=== PATIENT | male | born 1960 | race Caucasian/White ===

== ENCOUNTER 2018-02-20 05:38 | Emergency (ER) | payer BC, OTHER ==
[~2018-02-20] VITALS: Ht 188 cm; Wt 116.9 kg
[~2018-02-20 05:38] MED LIST: ATOR10TA; DIAZ5TAB PO; DULO60CA7; ESOM40CA; LISI1TAB5; OLAN5TAB3 PO; TEST75GE; TRAZ100T15 PO
[2018-02-20 05:41] VITALS: BP 139/81
[2018-02-20] MEDS ORDERED: TRIAMCINOLONE (05:54)
== END 2018-02-20 06:41 | disposition home or self-care (01) ==
LOC: ED 06:15
DX: L23.89 Allergic contact dermatitis due to other agents (principal); L27.0 Generalized skin eruption due to drugs and medicaments taken internally; T50.995A Adverse effect of other drugs, medicaments and biological substances, initial encounter; B37.9 Candidiasis, unspecified; I10 Essential (primary) hypertension; E78.00 Pure hypercholesterolemia, unspecified; M54.9 Dorsalgia, unspecified; G89.29 Other chronic pain; F31.9 Bipolar disorder, unspecified; K21.9 Gastro-esophageal reflux disease without esophagitis; Z90.49 Acquired absence of other specified parts of digestive tract; Z87.891 Personal history of nicotine dependence; Z79.899 Other long term (current) drug therapy; Y92.89 Other specified places as the place of occurrence of the external cause
CPT/HCPCS: 99283

== ENCOUNTER 2019-05-09 02:46 | Emergency (ER) | payer BC ==
[~2019-05-09] VITALS: Ht 182.9 cm; Wt 108.0 kg
[~2019-05-09 02:46] MED LIST changes: +TRAZ-137 PO; -TRAZ100T15 PO; +TRIAMCINOLONE
[2019-05-09 02:48] VITALS: BP 101/58
[2019-05-09] MEDS ORDERED: BUPIVACAINE 0.25% INFIL ONE (03:30)
[2019-05-09] MEDS ORDERED: LIDOCAINE-MPF 1%, 5ML INFIL ONE (03:30)
[2019-05-09] MEDS ORDERED: LIDOCAINE-MPF 1%, 5ML ONE (03:37)
[2019-05-09] MEDS ORDERED: BUPIVACAINE 0.25% ONE (03:37)
== END 2019-05-09 05:02 ==
LOC: ED 03:50
DX: K08.89 Other specified disorders of teeth and supporting structures (principal); K21.9 Gastro-esophageal reflux disease without esophagitis; G89.29 Other chronic pain; E78.00 Pure hypercholesterolemia, unspecified; I10 Essential (primary) hypertension; Z87.891 Personal history of nicotine dependence
CPT/HCPCS: 64402; 99284

== ENCOUNTER 2019-05-15 17:44 | Emergency (ER) | payer BC ==
[~2019-05-15] VITALS: Ht 185.4 cm; Wt 103.0 kg
--- NOTE | 2019-05-15 18:40 | NUR ---
PT STATES HE CAME DOWN FULL WEIGHT ON PIECE OF METAL THAT IS PART OF DOG BOWL JON. METAL HAD BEEN IMPALED INTO HIS LEFT FOOT. PT MANAGED TO REMOVE IT. PUNCURE WOUND, NO BLEEDING NOTED BOTTOM OF LEFT FOOT
--- NOTE | 2019-05-15 18:51 | NUR ---
REPORT RECEIVED FROM DARRION ALAS.
[2019-05-15] MEDS ORDERED: ACETAMINOPHEN 500 MG TABLET ONE (18:55)
[2019-05-15] MEDS ORDERED: IBUPROFEN 600 MG TABLET ONE (18:55)
--- NOTE | 2019-05-15 18:59 | NUR ---
PT MEDICATED PER EMAR FOR PAIN. PT TOLERATED WELL.
[2019-05-15] MEDS ORDERED: ACETAMINOPHEN 500 MG TABLET PO ONE (19:00)
[2019-05-15] MEDS ORDERED: IBUPROFEN 600 MG TABLET PO ONE (19:00)
[2019-05-15 19:24] VITALS: BP 84/48
--- NOTE | 2019-05-15 19:24 | NUR ---
BP 84/48 PER MANUAL BP. EDMD NOTIFIED. PT DENIES DZY.
[2019-05-15 19:35] LABS: BASOPHILS # (AUTO) 0.05 x10^3/uL (0-0.1); BASOPHILS % (AUTO) 0 % (0-1); EOSINOPHILS # (AUTO) 0.09 x10^3/uL (0-0.4); EOSINOPHILS % (AUTO) 1 % (1-7); LYMPHOCYTES # (AUTO) 3.05 x10^3/uL (1-3.4); LYMPHOCYTES % (AUTO) 21 % (22-44); MD NO; MEAN CORPUSCULAR HEMOGLOBIN 26.6 pg (27.5-34.5); MEAN CORPUSCULAR HGB CONC 32.4 g/dL (33.2-36.2); MEAN PLATELET VOLUME 7.3 fL (7.4-10.4); MONOCYTES # (AUTO) 1.07 x10^3/uL (0.2-0.8); MONOCYTES % (AUTO) 7 % (2-9); NEUTROPHILS # (AUTO) 10.57 x10^3/uL (1.8-6.8); NEUTROPHILS % (AUTO) 71 % (42-75); PLATELET COUNT 334 x10^3/uL (130-400); RED BLOOD COUNT 5.32 x10^6/uL (4.38-5.82); RED CELL DISTRIBUTION WIDTH 18.9 % (9.4-14.8)
[2019-05-15 19:43] LABS: ANION GAP 8 mmol/L (5-15); CALCIUM 8.4 mg/dL (8.5-10.1); CHLORIDE 104 mmol/L (98-107); CREATININE 2.02 mg/dL (0.7-1.3)
[2019-05-15] MEDS ORDERED: DIPH,PERTUSS(ACELL),TET VAC/PF 0.5 ML IM-VACC ONE ×2 (19:59→20:00)
[2019-05-15] MEDS ORDERED: AMOXICILLIN/CLAV 875-125MG TABLET ONE (19:59)
[2019-05-15] MEDS ORDERED: AMOXICILLIN/CLAV 875-125MG TABLET PO ONE (20:00)
--- NOTE | 2019-05-15 20:10 | NUR ---
PT MEDICATED PER EMAR. PT TOLERATED WELL.
--- NOTE | 2019-05-15 20:22 | NUR ---
PT GIVEN DC INSTRUCTIONS AND SCRIPT. PT EDUCATED REGARDING DC MEDICATION. PT'S AOX4. RESPS EVEN AND UNLABORED. NO ACUTE DISTRESS AT DC.
== END 2019-05-15 20:23 | disposition home or self-care (01) ==
LOC: ED 18:36
DX: S91.332A Puncture wound without foreign body, left foot, initial encounter (principal); K21.9 Gastro-esophageal reflux disease without esophagitis; E78.00 Pure hypercholesterolemia, unspecified; I10 Essential (primary) hypertension; I95.2 Hypotension due to drugs; W19.XXXA Unspecified fall, initial encounter; Y93.89 Activity, other specified; Y92.009 Unspecified place in unspecified non-institutional (private) residence as the place of occurrence of the external cause; Y99.8 Other external cause status
CPT/HCPCS: 36415; 80048; 85025; 90471; 90715

== ENCOUNTER 2019-05-16 10:00 | Emergency (ER) | payer BC ==
[~2019-05-16] VITALS: Ht 182.9 cm; Wt 110.0 kg
[2019-05-16 10:01] VITALS: BP 109/66
--- NOTE | 2019-05-16 10:26 | NUR ---
to tr01 via wheelchair. tech assisting to don gown
--- NOTE | 2019-05-16 10:28 | NUR ---
PA at BS
[2019-05-16] MEDS ORDERED: HYDROcodone/APAP 5/325 TABLET ONE (10:53)
[2019-05-16] MEDS ORDERED: HYDROcodone/APAP 5/325 TABLET PO ONE (11:00)
[2019-05-16] MEDS ORDERED: BACITRACIN OINT 500U/GM, 15 GM TP ONE (11:30)
[2019-05-16] MEDS ORDERED: NEOSPORIN OINT. PKT 1 PACKET TP ONE (11:30)
--- NOTE | 2019-05-16 11:36 | NUR ---
ice pack given to patient
== END 2019-05-16 11:48 | disposition home or self-care (01) ==
LOC: ED 11:20
DX: S91.332A Puncture wound without foreign body, left foot, initial encounter (principal); I10 Essential (primary) hypertension; K21.9 Gastro-esophageal reflux disease without esophagitis; E78.00 Pure hypercholesterolemia, unspecified; X58.XXXA Exposure to other specified factors, initial encounter; Y93.89 Activity, other specified; Y92.89 Other specified places as the place of occurrence of the external cause; Y99.8 Other external cause status
CPT/HCPCS: 99283

== ENCOUNTER 2019-05-25 04:48 | Emergency (ER) | payer BC ==
[~2019-05-25] VITALS: Ht 182.9 cm; Wt 108.0 kg
--- NOTE | 2019-05-25 05:10 | NUR ---
Pt sitting on david and begins stating, "I need pain medications. I am in pain all over, I fell 12 hours ago in [employer], they thought I was drunk, I was not drunk, someone even said, "he is drunk", I hit my head, I have a lump on my head and I hit my glasses, I have bruising on my arms and I hurt my knees, this knee (my right knee) I had surgery on. I was here last week and you all saw me for a hook in my foot, I passed out then too, and you all took an x-ray of my foot and sent me home with out pain meds, then I came back and got 6 pain pills. I am not a pain med jordan, I don't drink. I am a massage therapist, I am concerned that I have soft tissue damange in my foot where the hook was. I want an MRI. I want my knees scanned. I want pain medications. I take propanolol and lisinopril. I was 284 lbs, and I am on a diet of shakes and not really eating, and I am now 234 lbs. I need to see my doctor Isabela Rashid and have my blood pressure meds lowered." Pt denies cp, sob, vomitting, diarrhea. CMS intact Pt connected to NIBP cuff and continous pulse ox. Both bed rails up x2, call light within reach. No other needs expressed at this time.
--- NOTE | 2019-05-25 05:10 | NUR ---
LATE NOTE ENTRY FOR 0505: Pt ambulated to room from triage with steady gait and balance.
[2019-05-25] MEDS ORDERED: ONDANSETRON ODT 4 MG ONE (05:23)
[2019-05-25] MEDS ORDERED: HYDROcodone/APAP 5/325 TABLET ONE (05:24)
[2019-05-25] MEDS ORDERED: HYDROcodone/APAP 5/325 TABLET PO ONE (05:30)
[2019-05-25] MEDS ORDERED: ONDANSETRON 2MG/ML, 2ML IVPush ONE (05:30)
[2019-05-25] MEDS ORDERED: ONDANSETRON ODT 4 MG PO ONE (05:30)
[2019-05-25 05:46] LABS: BASOPHILS # (AUTO) 0.07 x10^3/uL (0-0.1); BASOPHILS % (AUTO) 1 % (0-1); EOSINOPHILS # (AUTO) 0.06 x10^3/uL (0-0.4); EOSINOPHILS % (AUTO) 1 % (1-7); LYMPHOCYTES # (AUTO) 2.57 x10^3/uL (1-3.4); LYMPHOCYTES % (AUTO) 21 % (22-44); MD NO; MEAN CORPUSCULAR HEMOGLOBIN 27.3 pg (27.5-34.5); MEAN CORPUSCULAR HGB CONC 32.8 g/dL (33.2-36.2); MEAN CORPUSCULAR VOLUME 83.3 fL (81-97); MEAN PLATELET VOLUME 6.7 fL (7.4-10.4); MONOCYTES # (AUTO) 0.77 x10^3/uL (0.2-0.8); MONOCYTES % (AUTO) 6 % (2-9); NEUTROPHILS # (AUTO) 8.52 x10^3/uL (1.8-6.8); NEUTROPHILS % (AUTO) 71 % (42-75); PLATELET COUNT 332 x10^3/uL (130-400); RED BLOOD COUNT 5.84 x10^6/uL (4.38-5.82); RED CELL DISTRIBUTION WIDTH 20.2 % (9.4-14.8)
[2019-05-25 05:51] LABS: ALBUMIN 3.6 g/dL (3.4-5.0); ANION GAP 9 mmol/L (5-15); CALCIUM 8.5 mg/dL (8.5-10.1); CHLORIDE 106 mmol/L (98-107); CREATININE 0.92 mg/dL (0.7-1.3)
[2019-05-25 05:54] LABS: TROPONIN I < 0.015 ng/mL (0.000-0.045)
--- NOTE | 2019-05-25 06:48 | NUR ---
Patient given discharge instructions and they have confirmed that they understand the instructions. Patient ambulatory with steady gait. Pt left with all personal belongings, dc paperwork, and prescription. DURAN.
[2019-05-25 06:49] VITALS: BP 114/61
== END 2019-05-25 06:51 | disposition home or self-care (01) ==
LOC: ED 05:28
DX: S06.0X0A Concussion without loss of consciousness, initial encounter (principal); I10 Essential (primary) hypertension; F31.9 Bipolar disorder, unspecified; K21.9 Gastro-esophageal reflux disease without esophagitis; W01.0XXA Fall on same level from slipping, tripping and stumbling without subsequent striking against object, initial encounter; Y93.89 Activity, other specified; Y92.89 Other specified places as the place of occurrence of the external cause; Y99.8 Other external cause status
CPT/HCPCS: 36415; 70450; 71045; 80048; 82040; 83880; 84484; 85025; 93005; 99284; Q0162